=== PATIENT | female | born 1950 | race Caucasian/White ===

== ENCOUNTER 2022-12-11 11:05 | Emergency (ER) | payer MEDICAID ==
[~2022-12-11] VITALS: Ht 160 cm; Wt 70.8 kg
--- NOTE | 2022-12-11 11:25 | NUR ---
LUE, shoulder and wrist pain s/p GLF "trip on a cord" last night.denies loc
--- NOTE | 2022-12-11 11:30 | NUR ---
AT BEDSIDE FOR EVAL
[2022-12-11] MEDS ORDERED: IBUP-1957 PO (12:48)
[2022-12-11 14:10] VITALS: BP 151/79; TEMP 98.3
--- NOTE | 2022-12-11 14:10 | NUR ---
Patient discharged to home in stable condition. Written and verbal after care instructions given. Patient verbalizes understanding of instruction.
== END 2022-12-11 14:10 | disposition home or self-care (01) ==
LOC: ER 11:09
DX: S42.292A Other displaced fracture of upper end of left humerus, initial encounter for closed fracture (principal); S00.83XA Contusion of other part of head, initial encounter; I10 Essential (primary) hypertension; Z79.899 Other long term (current) drug therapy; Z88.1 Allergy status to other antibiotic agents; W19.XXXA Unspecified fall, initial encounter; Y93.89 Activity, other specified; Y92.89 Other specified places as the place of occurrence of the external cause; Y99.8 Other external cause status
CPT/HCPCS: 70450-TC; 72125-TC; 73030-TC; 73080-TC; 73110